=== PATIENT | female | born 1985 | race African-American/Black ===

== ENCOUNTER 2023-06-09 06:33 | Inpatient (IN) | payer MEDICARE, MEDICAID ==
[~2023-06-09] VITALS: Ht 167.6 cm; Wt 93.4 kg
[~2023-06-09 06:33] MED LIST: CALC667T6 MT; PNV1TABL76 MT
[2023-06-09 08:09] LABS: BASOPHILS % 0.8 % (0.0-2.0); EOSINOPHILS % 2.2 % (0.0-5.0); HEMOGLOBIN. 10.5 g/dL (12.0-16.0); LYMPHOCYTES % 24.1 % (20.0-50.0); MEAN CORPUSCULAR HEMOGLOBIN 28.2 pg (28.0-32.0); MEAN CORPUSCULAR HGB CONC 31.7 g/dL (31.0-37.0); MEAN CORPUSCULAR VOLUME 89.1 fL (81.0-99.0); MEAN PLATELET VOLUME 8.4 fl (7.4-10.4); MONOCYTES % 14.1 % (2.0-8.0); NEUTROPHILS % 58.8 % (40.0-76.0); PLATELET 104 x1000/uL (130-400); RED BLOOD CELL COUNT 3.71 mill/uL (4.2-5.4); RED CELL DISTRIBUTION WIDTH 15.7 % (11.6-14.6)
[2023-06-09 08:20] LABS: ALANINE AMINOTRANSFERASE 36 IU/L (10-49); ALBUMIN 3.9 g/dL (3.2-4.8); ASPARTATE AMINOTRANSFERASE 47 IU/L (<34); BILIRUBIN TOTAL 0.3 mg/dL (0.1-1.0); CALCIUM 9.2 mg/dL (8.7-10.4); CARBON DIOXIDE 16 mEq/L (21-32); CHLORIDE 109 mEq/L (98-107); GLUCOSE 75 mg/dL (70-105); POTASSIUM 5.9 mEq/L (3.5-5.1); PROTEIN TOTAL 7.9 g/dL (6.0-8.3); SODIUM 139 mEq/L (136-145); UREA NITROGEN BLOOD 59 mg/dL (9-23)
[2023-06-09 08:41] LABS: CREATININE 10.1 mg/dL (0.6-1.0)
[2023-06-09] MEDS ORDERED: SODIUM POLYSTYRENE SULFONATE 15 G/60 ML BOT PO NR (11:15)
[2023-06-09] MEDS ORDERED: HYDROCODONE/ACETAMINOPHEN 5/325MG TABLET PO PRN (22:15)
[2023-06-09] MEDS ORDERED: CLONIDINE 0.1MG TABLET PO PRN (22:15)
[2023-06-09] MEDS ORDERED: ONDANSETRON HCL 4MG/2ML INJ IV PRN (22:15)
[2023-06-09] MEDS ORDERED: ACETAMINOPHEN 325MG TABLET PO PRN (22:15)
[2023-06-09] MEDS ORDERED: MAGNESIUM/ALUMINUM HYDROXIDE/SIMETHICONE 30ML UDC PO PRN (22:15)
[2023-06-10] VITALS (16 sets, daily range): BP systolic 125–163; BP diastolic 70–120; PULSE 74–110; RESP 15–24; TEMP 98.4–99.2; O2SAT 99
[2023-06-10 00:09] LABS: POTASSIUM 5.7 mEq/L (3.5-5.1)
[2023-06-10] MEDS: OMEPRAZOLE 20MG CAPSULE EXTENDED RELEASE PO SCH (06:03)
[2023-06-10 07:27] LABS: BASOPHILS % 0.8 % (0.0-2.0); EOSINOPHILS % 3.1 % (0.0-5.0); HEMATOCRIT. 32.3 % (36.0-48.0); HEMOGLOBIN. 10.2 g/dL (12.0-16.0); LYMPHOCYTES % 31.4 % (20.0-50.0); MEAN CORPUSCULAR HEMOGLOBIN 27.8 pg (28.0-32.0); MEAN CORPUSCULAR HGB CONC 31.5 g/dL (31.0-37.0); MEAN CORPUSCULAR VOLUME 88.3 fL (81.0-99.0); MEAN PLATELET VOLUME 8.8 fl (7.4-10.4); MONOCYTES % 12.1 % (2.0-8.0); NEUTROPHILS % 52.6 % (40.0-76.0); PLATELET 96 x1000/uL (130-400); RED BLOOD CELL COUNT 3.66 mill/uL (4.2-5.4); WHITE BLOOD COUNT 2.8 x1000/uL (4.5-11.0)
[2023-06-10 08:10] LABS: T4 FREE 0.88 ng/dL (0.89-1.76); THYROID STIMULATING HORMONE 1.7 uIU/mL (0.55-4.78)
[2023-06-10 08:43] LABS: CREATININE 11.1 mg/dL (0.6-1.0)
[2023-06-10 08:45] LABS: POTASSIUM 6.4 mEq/L (3.5-5.1)
[2023-06-10] MEDS ORDERED: SODIUM POLYSTYRENE SULFONATE 15 G/60 ML BOT PO NR (09:00)
[2023-06-10] MEDS: ENOXAPARIN 30MG/0.3ML SYR SUBCUT SCH (09:09)
[2023-06-10] MEDS: AMLODIPINE 5MG TABLET PO SCH (09:09)
[2023-06-10] MEDS ORDERED: METO-385 PO (09:13)
[2023-06-10] MEDS ORDERED: DOCU250C69 PO (10:27)
[2023-06-10] MEDS ORDERED: CARV6.2548 PO (10:27)
[2023-06-10] MEDS ORDERED: SODIUM BICARBONATE 8.4% 1 MEQ/ML 50ML SYR IV NR (10:30)
[2023-06-10] MEDS ORDERED: LOSA25TA26 PO (10:44)
[2023-06-10] MEDS ORDERED: CALC0.5C10 PO (10:44)
[2023-06-10] MEDS ORDERED: SEVE800T8 PO (10:44)
[2023-06-10] MEDS ORDERED: METO25TA6 PO (10:44)
[2023-06-10] MEDS ORDERED: XPHOZAH PO (10:44)
[2023-06-10] MEDS ORDERED: ALBU6.7H15 INH (10:47)
[2023-06-10] MEDS ORDERED: ENOXAPARIN 30MG/0.3ML SYR SUBCUT SCH (11:00)
[2023-06-10 11:27] LABS: HEPATITIS A AB IGM NEGATIVE (Negative); HEPATITIS B CORE AB IGM NEGATIVE (Negative); HEPATITIS B SURFACE ANTIGEN NEGATIVE (Negative); HEPATITIS C AB NON REACTIVE (Neg) (Negative)
[2023-06-10] MEDS ORDERED: ASPIRIN 81MG EC TABLET PO SCH (13:00)
[2023-06-10 15:19] LABS: IRON 39 ug/dL (50-170); TOTAL IRON BINDING CAPACITY 153 ug/dl (250-425)
[2023-06-10 15:24] LABS: FERRITIN 327 ng/mL (10-291); FOLIC ACID (FOLATE) SERUM 10.17 ng/mL (>5.38); VITAMIN B12 SERUM 370 pg/mL (211-911)
[2023-06-10] MEDS ORDERED: NALOXONE HCL 0.4MG/ML VIAL IV PRN (16:00)
[2023-06-10 17:48] LABS: TROPONIN I HIGH SENSITIVITY 32 ng/L (3.0-34)
[2023-06-10] MEDS: IPRATROPIUM/ALBUTEROL 0.5-3(2.5)MG/3ML NEB HHN SCH (20:01)
[2023-06-10] MEDS: METOPROLOL TARTRATE 25MG TABLET PO SCH (21:12)
[2023-06-11] VITALS (13 sets, daily range): BP systolic 106–139; BP diastolic 65–102; PULSE 68–85; RESP 14–23; TEMP 97.3–99.1; O2SAT 97–98
[2023-06-11] MEDS: IPRATROPIUM/ALBUTEROL 0.5-3(2.5)MG/3ML NEB HHN SCH (02:22)
[2023-06-11 06:28] LABS: BASOPHILS % 1.1 % (0.0-2.0); EOSINOPHILS % 3.4 % (0.0-5.0); HEMATOCRIT. 31.1 % (36.0-48.0); HEMOGLOBIN. 10.1 g/dL (12.0-16.0); LYMPHOCYTES % 34.6 % (20.0-50.0); MEAN CORPUSCULAR HEMOGLOBIN 28.3 pg (28.0-32.0); MEAN CORPUSCULAR HGB CONC 32.4 g/dL (31.0-37.0); MEAN CORPUSCULAR VOLUME 87.4 fL (81.0-99.0); MEAN PLATELET VOLUME 8.6 fl (7.4-10.4); MONOCYTES % 10.9 % (2.0-8.0); PLATELET 92 x1000/uL (130-400); RED BLOOD CELL COUNT 3.56 mill/uL (4.2-5.4); RED CELL DISTRIBUTION WIDTH 15.4 % (11.6-14.6); WHITE BLOOD COUNT 2.4 x1000/uL (4.5-11.0)
[2023-06-11] MEDS: OMEPRAZOLE 20MG CAPSULE EXTENDED RELEASE PO SCH (06:31)
[2023-06-11] MEDS: AMLODIPINE 5MG TABLET PO SCH (08:35)
[2023-06-11] MEDS: ENOXAPARIN 30MG/0.3ML SYR SUBCUT SCH (08:35)
[2023-06-11] MEDS: METOPROLOL TARTRATE 25MG TABLET PO SCH (08:35)
[2023-06-11 08:58] LABS: ALANINE AMINOTRANSFERASE 28 IU/L (10-49); ALBUMIN 3.7 g/dL (3.2-4.8); ASPARTATE AMINOTRANSFERASE 26 IU/L (<34); BILIRUBIN DIRECT 0.1 mg/dL (<=3.0); BILIRUBIN TOTAL 0.3 mg/dL (0.1-1.0); CALCIUM 8.6 mg/dL (8.7-10.4); CARBON DIOXIDE 18 mEq/L (21-32); CHLORIDE 104 mEq/L (98-107); GLUCOSE 60 mg/dL (70-105); POTASSIUM 5.3 mEq/L (3.5-5.1); PROTEIN TOTAL 7.6 g/dL (6.0-8.3); SODIUM 140 mEq/L (136-145); UREA NITROGEN BLOOD 70 mg/dL (9-23)
[2023-06-11 08:59] LABS: CREATININE 10.1 mg/dL (0.6-1.0)
[2023-06-11 09:02] LABS: PHOSPHORUS 9.2 mg/dL (2.5-4.9)
[2023-06-11] MEDS ORDERED: AMLO5TAB88 PO (12:17)
== END 2023-06-11 18:43 | disposition home or self-care (01) | DRG 640 ==
LOC: ER 06:33 → 3WST 13:57 → EDBEDREQ 13:59 → EDBEDREQTM 13:59 → EDBEDREQ 14:00
PROVIDERS: ADMIT Family Medicine Adult Medicine; ATTEND Family Medicine Adult Medicine
PROC: 5A1D70Z Performance of Urinary Filtration, Intermittent, Less than 6 Hours Per Day (ICD-10-PCS; principal; 2023-06-10)
PROC: 5A1D70Z Performance of Urinary Filtration, Intermittent, Less than 6 Hours Per Day (ICD-10-PCS; 2023-06-11)
DX: E87.5 Hyperkalemia (principal); J96.90 Respiratory failure, unspecified, unspecified whether with hypoxia or hypercapnia; N18.6 End stage renal disease; D61.818 Other pancytopenia; I12.0 Hypertensive chronic kidney disease with stage 5 chronic kidney disease or end stage renal disease; N25.81 Secondary hyperparathyroidism of renal origin; J81.1 Chronic pulmonary edema; J45.909 Unspecified asthma, uncomplicated; E87.20 Acidosis, unspecified; R00.0 Tachycardia, unspecified; Z99.2 Dependence on renal dialysis; E78.5 Hyperlipidemia, unspecified; Z79.899 Other long term (current) drug therapy; Z82.49 Family history of ischemic heart disease and other diseases of the circulatory system
CPT/HCPCS: 36415; 71045; 80048; 80053; 80061; 80076; 82607; 82728; 82746; 83540; 83550; 83735; 84100; 84132; 84439; 84443; 84484; 85025; 85379; 86705; 86709; 87340; 90935; 93005; 93306; 93970; 94640; 99285; J1650; J3490

== ENCOUNTER 2025-04-03 14:14 | Inpatient (IN) | payer MEDICARE, MEDICAID ==
[~2025-04-03] VITALS: Ht 170.2 cm; Wt 103.9 kg
[~2025-04-03 14:14] MED LIST changes: +ALBU6.7H15 INH; +CALC0.5C10 PO; +DOCU-405 PO; +MIDO5TAB4 PO; -PNV1TABL76 MT; +SEVE800T8 PO; +XPHOZAH PO
[2025-04-03 14:20] VITALS: O2SAT 100
[2025-04-03 16:43] LABS: BASOPHILS % 0.9 % (0.0-2.0); EOSINOPHILS % 6.9 % (0.0-5.0); HEMATOCRIT. 27.7 % (36.0-48.0); HEMOGLOBIN. 8.9 g/dL (12.0-16.0); LYMPHOCYTES % 33.6 % (20.0-50.0); MEAN PLATELET VOLUME 8.6 fl (7.4-10.4); MONOCYTES % 11.9 % (2.0-8.0); NEUTROPHILS % 46.7 % (40.0-76.0); PLATELET 170 x1000/uL (130-400); RED BLOOD CELL COUNT 3.16 mill/uL (4.2-5.4); RED CELL DISTRIBUTION WIDTH 14.0 % (11.6-14.6)
[2025-04-03] MEDS: PIPERACILLIN/TAZO 3.375G/50ML 50 ML IV ONE (16:49)
[2025-04-03] MEDS: METHYLPREDNISOLONE SOD SUCC 125MG/2ML (ACT-O-VIAL) IV ONE (16:50)
[2025-04-03] MEDS: DIPHENHYDRAMINE 50MG/ML VIAL IV ONE (16:50)
[2025-04-03] MEDS: VANCOMYCIN 1G PREMIX 200 ML IV ONE (16:50)
[2025-04-03 16:54] LABS: INR 1.0
[2025-04-03 16:56] LABS: HCG SCREEN NEGATIVE
[2025-04-03 16:57] LABS: UREA NITROGEN BLOOD 75 mg/dL (9-23)
[2025-04-03 16:59] LABS: ASPARTATE AMINOTRANSFERASE 14 IU/L (<34); BILIRUBIN DIRECT < 0.1 mg/dL (<=3.0); BILIRUBIN TOTAL < 0.2 mg/dL (0.1-1.0); PROTEIN TOTAL 8.0 g/dL (6.0-8.3)
[2025-04-03 17:11] LABS: CREATININE 16.7 mg/dL (0.6-1.0)
[2025-04-03] MEDS ORDERED: SODIUM BICARBONATE 8.4% 50MEQ/50ML VIAL IV ONE (17:15)
[2025-04-03] MEDS: DEXTROSE 50% WATER 50ML SYRINGE IV ONE (17:33)
[2025-04-03] MEDS: SODIUM BICARBONATE 8.4% 50MEQ/50ML SYR IV NR (17:34)
[2025-04-03] MEDS: INSULIN REGULAR (HUMULIN R) 1000UNITS/10ML VIAL IV ONE (17:34)
[2025-04-03] MEDS: CALCIUM GLUCONATE 100MG/ML 10ML VIAL IV ONE (17:41)
[2025-04-03 22:53] VITALS: BP 147/82; PULSE 68; RESP 18; TEMP 36.9184
[2025-04-03] MEDS ORDERED: SODI10PO PO (23:27)
[2025-04-04] VITALS (12 sets, daily range): BP systolic 124–151; BP diastolic 71–92; PULSE 56–85; RESP 16–20; TEMP 36.2–37.16964; O2SAT 95–98
[2025-04-04] MEDS ORDERED: ONDANSETRON HCL 4MG/2ML INJ IV PRN (00:15)
[2025-04-04] MEDS ORDERED: MORPHINE SULFATE 4 MG/ML INJ (FOR IV/IM USE) IV PRN (00:15)
[2025-04-04] MEDS: SODIUM CHLORIDE 0.9% 1,000 ML IV SCH (02:38)
[2025-04-04 08:38] LABS: BASOPHILS % 0.7 % (0.0-2.0); EOSINOPHILS % 0.0 % (0.0-5.0); HEMATOCRIT. 32.3 % (36.0-48.0); HEMOGLOBIN. 10.0 g/dL (12.0-16.0); LYMPHOCYTES % 19.3 % (20.0-50.0); MEAN PLATELET VOLUME 8.9 fl (7.4-10.4); MONOCYTES % 5.3 % (2.0-8.0); NEUTROPHILS % 74.7 % (40.0-76.0); PLATELET 212 x1000/uL (130-400); RED BLOOD CELL COUNT 3.65 mill/uL (4.2-5.4); RED CELL DISTRIBUTION WIDTH 14.2 % (11.6-14.6)
[2025-04-04 09:03] LABS: UREA NITROGEN BLOOD 72.0 mg/dL (9-23)
[2025-04-04] MEDS: PIPERACILLIN/TAZO 3.375G/50ML 50 ML IV SCH (09:48)
[2025-04-04 13:04] LABS: CREATININE 16.9 mg/dL (0.6-1.0)
[2025-04-04 15:51] LABS: HEPATITIS A AB IGM NEGATIVE (Negative); HEPATITIS B CORE AB IGM NEGATIVE (Negative)
[2025-04-04 15:52] LABS: HEPATITIS C AB NON REACTIVE (Neg) (Negative)
[2025-04-04] MEDS: VANCOMYCIN 1GM/200ML PMX (BAXTER) IV SCH (18:19)
[2025-04-05] VITALS (13 sets, daily range): BP systolic 128–167; BP diastolic 77–100; PULSE 60–74; RESP 18–20; TEMP 36–36.8; O2SAT 96–100
[2025-04-05 07:52] LABS: UREA NITROGEN BLOOD 55.0 mg/dL (9-23)
[2025-04-05 09:12] LABS: CREATININE 13.8 mg/dL (0.6-1.0)
[2025-04-06] VITALS (8 sets, daily range): BP systolic 128–170; BP diastolic 70–101; PULSE 60–77; RESP 18–20; TEMP 36.3–36.78072; O2SAT 98
[2025-04-06 05:03] LABS: PLATELET 187 x1000/uL (130-400); RED BLOOD CELL COUNT 3.06 mill/uL (4.2-5.4); RED CELL DISTRIBUTION WIDTH 14.7 % (11.6-14.6)
[2025-04-06 05:17] LABS: UREA NITROGEN BLOOD 42.0 mg/dL (9-23)
[2025-04-06 05:26] LABS: CREATININE 7.4 mg/dL (0.6-1.0)
[2025-04-06] MEDS ORDERED: BACITRACIN 14GM TUBE TOP ONE (07:14)
[2025-04-06] MEDS ORDERED: BUPIVACAINE HCL/PF 0.25% (2.5MG/ML) 10ML ONE ×2 (07:14→08:15)
[2025-04-06] MEDS ORDERED: POLYMYXIN B SULFATE 500000 UNITS/VIAL ONE (07:14)
[2025-04-06] MEDS ORDERED: THROMBIN (BOVINE) 5000 UNITS/VIAL TOP ONE (07:14)
[2025-04-06] MEDS ORDERED: LIDOCAINE HCL 1% 10 MG/ML 10ML VIAL ONE ×2 (07:15→08:15)
[2025-04-06] MEDS ORDERED: HEPARIN SODIUM 1,000 UNIT/1ML VIAL IV ONE (07:15)
[2025-04-06] MEDS ORDERED: BUPIVACAINE HCL/PF 0.5% (5MG/ML) 10ML ONE (07:31)
[2025-04-06] MEDS ORDERED: MIDAZOLAM HCL 2 MG/2 ML VIAL ONE (08:16)
[2025-04-06] MEDS ORDERED: PROPOFOL 200MG/20ML VIAL IV ONE ×2 (08:47→09:00)
[2025-04-06] MEDS ORDERED: DEXAMETHASONE 4MG/ML 1ML VIAL ONE (09:02)
[2025-04-06] MEDS ORDERED: FENTANYL CITRATE/PF 50MCG/ML 2ML VIAL ONE (09:23)
[2025-04-06] MEDS ORDERED: ACETAMINOPHEN 1000MG/100ML 100 ML IV ONE (09:31)
[2025-04-06] MEDS ORDERED: ONDANSETRON HCL 4MG/2ML INJ IV PRN (10:15)
[2025-04-06] MEDS ORDERED: HYDROMORPHONE HCL/PF 1MG/ML INJ IV PRN (10:15)
[2025-04-06] MEDS ORDERED: ONDANSETRON HCL 4MG/2ML INJ ONE (11:18)
[2025-04-06] MEDS ORDERED: NALOXONE HCL 0.4MG/ML VIAL IV PRN (15:30)
[2025-04-06] MEDS: HYDRALAZINE 20MG/ML VIAL IV PRN (18:25)
[2025-04-07] VITALS (9 sets, daily range): BP systolic 118–140; BP diastolic 61–95; PULSE 68–98; RESP 18–20; TEMP 36.114–36.7; O2SAT 95–99
[2025-04-07] MEDS: HYDROCODONE/ACETAMINOPHEN 5/325MG TABLET PO PRN (05:09)
[2025-04-07 08:22] LABS: BASOPHILS % 0.4 % (0.0-2.0); EOSINOPHILS % 0.2 % (0.0-5.0); HEMATOCRIT. 25.7 % (36.0-48.0); HEMOGLOBIN. 8.2 g/dL (12.0-16.0); LYMPHOCYTES % 16.9 % (20.0-50.0); MEAN PLATELET VOLUME 8.3 fl (7.4-10.4); MONOCYTES % 10.2 % (2.0-8.0); NEUTROPHILS % 72.3 % (40.0-76.0); PLATELET 196 x1000/uL (130-400); RED BLOOD CELL COUNT 3.00 mill/uL (4.2-5.4); RED CELL DISTRIBUTION WIDTH 14.4 % (11.6-14.6)
[2025-04-07 08:43] LABS: UREA NITROGEN BLOOD 50.0 mg/dL (9-23)
[2025-04-07 09:21] LABS: CREATININE 14.6 mg/dL (0.6-1.0)
[2025-04-07] MEDS: VANCOMYCIN 1GM/200ML PMX (BAXTER) IV SCH (17:57)
[2025-04-07] MEDS: IOHEXOL-350 100 ML BOTTLE ONE (19:10)
[2025-04-08] VITALS (7 sets, daily range): BP systolic 118–152; BP diastolic 59–94; PULSE 72–88; RESP 18–20; TEMP 36.1–36.4; O2SAT 96–100
[2025-04-09] VITALS: BP 142/99; PULSE 84; RESP 18; TEMP 36.1; O2SAT 99
[2025-04-09 04:00] VITALS: BP 128/69; PULSE 88; RESP 18; TEMP 36.2; O2SAT 99
[2025-04-09 07:34] LABS: UREA NITROGEN BLOOD 51.0 mg/dL (9-23)
[2025-04-09 07:37] LABS: BASOPHILS % 0.7 % (0.0-2.0); EOSINOPHILS % 4.0 % (0.0-5.0); HEMATOCRIT. 25.1 % (36.0-48.0); HEMOGLOBIN. 8.0 g/dL (12.0-16.0); LYMPHOCYTES % 25.8 % (20.0-50.0); MEAN PLATELET VOLUME 8.1 fl (7.4-10.4); MONOCYTES % 13.2 % (2.0-8.0); NEUTROPHILS % 56.3 % (40.0-76.0); PLATELET 169 x1000/uL (130-400); RED BLOOD CELL COUNT 2.89 mill/uL (4.2-5.4); RED CELL DISTRIBUTION WIDTH 14.8 % (11.6-14.6)
[2025-04-09 08:00] VITALS: BP 152/94; PULSE 82; RESP 18; TEMP 36.4; O2SAT 100
[2025-04-09 08:27] LABS: CREATININE 14.4 mg/dL (0.6-1.0)
[2025-04-09] MEDS: SODIUM HYPOCHLORITE 0.125% 473ML SOLUTION TOP SCH (09:03)
[2025-04-09 12:00] VITALS: BP 144/87; PULSE 70; RESP 18; TEMP 36.5; O2SAT 100
[2025-04-09] MEDS: AMPICILLIN SOD/SULBACTAM NA 3 G in SODIUM CHLORIDE 0.9% 100 ML IV SCH (13:04)
[2025-04-09 16:00] VITALS: BP 125/88; PULSE 76; RESP 18; TEMP 36.5; O2SAT 100
[2025-04-09 20:00] VITALS: BP 165/110; PULSE 70; RESP 18; TEMP 36.4; O2SAT 99
[2025-04-10] VITALS (12 sets, daily range): BP systolic 138–154; BP diastolic 76–103; PULSE 61–86; RESP 15–18; TEMP 36.1–36.9; O2SAT 97–100
[2025-04-10] MEDS: ACETAMINOPHEN 325MG TABLET PO PRN (08:00)
[2025-04-10] MEDS ORDERED: EPOETIN ALFA-EPBX 4,000 UNITS/ML VIAL SUBCUT SCH (21:00)
== END 2025-04-10 17:47 | disposition home health service (06) | DRG 252 ==
LOC: ER 14:14 → 7WST 17:31 → ENRESERV 21:23
PROVIDERS: ADMIT Internal Medicine; ATTEND Internal Medicine
PROC: 5A1D70Z Performance of Urinary Filtration, Intermittent, Less than 6 Hours Per Day (ICD-10-PCS; 2025-04-04)
PROC: 5A1D70Z Performance of Urinary Filtration, Intermittent, Less than 6 Hours Per Day (ICD-10-PCS; 2025-04-05)
PROC: 05L80ZZ Occlusion of Left Axillary Vein, Open Approach (ICD-10-PCS; principal; 2025-04-06)
PROC: 05C80ZZ Extirpation of Matter from Left Axillary Vein, Open Approach (ICD-10-PCS; 2025-04-06)
PROC: 5A1D70Z Performance of Urinary Filtration, Intermittent, Less than 6 Hours Per Day (ICD-10-PCS; 2025-04-06)
PROC: 3E0T3BZ Introduction of Anesthetic Agent into Peripheral Nerves and Plexi, Percutaneous Approach (ICD-10-PCS; 2025-04-06)
PROC: 5A1D70Z Performance of Urinary Filtration, Intermittent, Less than 6 Hours Per Day (ICD-10-PCS; 2025-04-07)
PROC: 5A1D70Z Performance of Urinary Filtration, Intermittent, Less than 6 Hours Per Day (ICD-10-PCS; 2025-04-10)
DX: T82.7XXA Infection and inflammatory reaction due to other cardiac and vascular devices, implants and grafts, initial encounter (principal); A41.9 Sepsis, unspecified organism; N18.6 End stage renal disease; E87.20 Acidosis, unspecified; I12.0 Hypertensive chronic kidney disease with stage 5 chronic kidney disease or end stage renal disease; L02.414 Cutaneous abscess of left upper limb; D72.819 Decreased white blood cell count, unspecified; Z99.2 Dependence on renal dialysis; D64.9 Anemia, unspecified; J45.909 Unspecified asthma, uncomplicated; Z59.00 Homelessness unspecified; Y83.2 Surgical operation with anastomosis, bypass or graft as the cause of abnormal reaction of the patient, or of later complication, without mention of misadventure at the time of the procedure; E87.5 Hyperkalemia; Z79.899 Other long term (current) drug therapy
CPT/HCPCS: 36415; 71045; 73201; 80048; 80076; 80202; 83605; 84145; 84703; 85025; 85027; 86705; 86709; 86850; 86900; 86920; 87070; 87075; 87077; 87186; 87340; 88304; 90935; 93005; 93971; 99291; A4606; J0295; J0360; J0612; J0665; J1100; J1200; J1644; J1815; J2003; J2250; J2405; J2543; J2704; J2919; J3010; J3373; J3490; J7030; J7050; Q9967; J0131